=== PATIENT | male | born 1960 | race Caucasian/White ===

== ENCOUNTER 2020-04-27 01:17 | Emergency (ER) | payer OTHER ==
[2020-04-27] MEDS ORDERED: ALBUTEROL/IPRATROPIUM 3 ML NEB NEB STA (02:02)
[2020-04-27] MEDS ORDERED: METHYLPREDNISOLONE SOD SUCC 125 MG/2ML VIAL IM STA (02:03)
[2020-04-27] MEDS ORDERED: METHYLPREDNISOLONE SOD SUCC 125 MG/2ML VIAL ONE (02:19)
[2020-04-27] MEDS ORDERED: ALBUTEROL/IPRATROPIUM 3 ML NEB ONE (02:19)
[2020-04-27 09:21] VITALS: BP 171/101
== END 2020-04-27 09:28 | disposition home or self-care (01) ==
LOC: FSED 01:30
DX: R06.00 Dyspnea, unspecified (principal); J44.9 Chronic obstructive pulmonary disease, unspecified; I50.9 Heart failure, unspecified
CPT/HCPCS: 71045; 94760; 99283; J2930